=== PATIENT | female | born 2000 | race African-American/Black ===

== ENCOUNTER 2020-07-28 13:01 | Emergency (ER) | payer OTHER ==
[~2020-07-28] VITALS: Ht 160 cm; Wt 54.4 kg
[2020-07-28 14:16] VITALS: BP 120/80
--- NOTE | 2020-07-28 14:20 | NUR ---
ED Nurse Note: Patient brought in by ambulance due to possible overdose of cocaine. Pt c/o abd pain with N/V. AAO x4, ambulatory. Speaks in clear sentence wiht no respiratory distress.
[2020-07-28 14:37] LABS: BASOPHILS % (AUTO) 0.6 % (0.0-2.0); EOSINOPHILS % (AUTO) 0.8 % (0.0-3.0); HEMATOCRIT 45.5 % (37.0-47.0); HEMOGLOBIN 15.1 G/DL (12.0-16.0); LYMPHOCYTES % (AUTO) 27.9 % (20.0-45.0); MEAN CORPUSCULAR VOLUME 100 FL (80-99); MONOCYTES % (AUTO) 9.1 % (1.0-10.0); NEUTROPHILS % (AUTO) 61.6 % (45.0-75.0); PLATELET COUNT 212 K/UL (150-450); RED BLOOD COUNT 4.54 M/UL (4.20-5.40); RED CELL DISTRIBUTION WIDTH 12.1 % (11.6-14.8); WHITE BLOOD COUNT 10.7 K/UL (4.8-10.8)
--- NOTE | 2020-07-28 14:48 | Emergency Room Report ---
History of Present Illness General Chief Complaint: General Complaint Source: Patient Present Illness HPI 20-year-old female with no symptom past medical history brought in by paramedics due to overdose on cocaine and other unknown substances. Patient reports that she snorted cocaine in clear and "puffed some unknown drug." Also reports that drank alcohol. Patient reports that she has history of schizophrenia however is noncompliant with taking medication. Denies chest pain, shortness of breath, headache and dizziness. Talking in full sentences, compliant, and in no distress. Denies SI and HI Allergies: Coded Allergies: No Known Allergies (Unverified , 07/28/20) COVID-19 Screening Contact w/high risk pt: No Experienced COVID-19 symptoms?: No COVID-19 Testing performed UNARMED SECURITY GUARD: No Patient History Past Medical History: see triage record Past Surgical History: none Pertinent Family History: none Now: No Immunizations: UTD Reviewed Nursing Documentation: PMH: Agreed; PSxH: Agreed Nursing Documentation-PMH Past Medical History: No Stated History Review of Systems All Other Systems: negative except mentioned in HPI Physical Exam Vital Signs Date Time Temp Pulse Resp B/P (MAP) Pulse Ox O2 Delivery O2 Flow Rate FiO2 07/28/20 13:45 98.2 86 18 120/80 (93) 98 Room Air Sp02 EP Interpretation: reviewed, normal General Appearance: no apparent distress, alert, GCS 15, non-toxic Head: normocephalic, atraumatic Eyes: bilateral eye normal inspection, bilateral eye PERRL ENT: hearing grossly normal, normal pharynx, no angioedema, normal voice Neck: full range of motion, supple/symm/no masses Respiratory: chest non-tender, lungs clear, normal breath sounds, speaking full sentences Cardiovascular #1: regular rate, rhythm, no edema Cardiovascular #2: 2+ carotid (R), 2+ carotid (L), 2+ radial (R), 2+ radial (L), 2+ dorsalis pedis (R), 2+ dorsalis pedis (L) Gastrointestinal: normal bowel sounds, non tender, soft, non-distended, no guarding, no rebound Rectal: deferred Musculoskeletal: back normal Neurologic: alert, motor strength/tone normal, oriented x3, sensory intact, responsive, speech normal Psychiatric: judgement/insight normal, memory normal, mood/affect normal, no suicidal/homicidal ideation Skin: palpation normal Lymphatic: no adenopathy Medical Decision Making PA Attestation All my diagnosis and treatment plans were reviewed ad discussed with my supervising physician Dr. Calero Diagnostic Impression: Primary Impression: Left against medical advice ER Course 20-year-old female with no symptom past medical history brought in by paramedics due to overdose on cocaine and other unknown substances. Patient reports that she snorted cocaine in clear and "puffed some unknown drug." Also reports that drank alcohol. Patient reports that she has history of schizophrenia however is noncompliant with taking medication. Denies chest pain, shortness of breath, headache and dizziness. Talking in full sentences, compliant, and in no distress. Denies SI and HI Ddx considered but are not limited to:cocaine abuse, meth abuse, PCP abuse, Alcohol intoxication with altered level of consciousness, alcohol intoxication causing pancreatitis, alcohol abuse, multi drug use and alcohol intoxication Vital signs: are WNL, pt. is afebrile H&PE are most consistent with: left AMA ORDERS: CBC, CMP, UA, urine test, toxin, chest x-ray, blood serum alcohol ER intervention: NS bolus pt left AMA, had full judgement in making decision, said " she called the paramedics because she was scared after she used drugs and now she knows not to use drugs anymore." is interested in list of rehab places. Last Vital Signs Date Time Temp Pulse Resp B/P (MAP) Pulse Ox O2 Delivery O2 Flow Rate FiO2 07/28/20 14:16 98.2 88 18 120/80 98 Room Air Disposition: AGAINST MEDICAL ADVICE Condition: Stable Referrals: [facility]ERR[facility] (PCP) Arcadio Sarmiento Jul 28, 2020 14:48
--- NOTE | 2020-07-28 14:55 | NUR ---
ED Nurse Note: Collected urine then sent.
[2020-07-28 15:05] VITALS: BP 133/79
--- NOTE | 2020-07-28 15:05 | NUR ---
ED Nurse Note: Patient signed AMA form and Arcadio/ANGEL notified. Patient is AAO x4 and ambulates with steady gait. Pt is aware of potential complications and vergbalized understanding. List of rehab resources given to patient. No ID band/IV access.
[2020-07-28 15:15] LABS: ANION GAP 8 mmol/L (5-15); BLOOD UREA NITROGEN 4 mg/dL (7-18); CALCIUM 9.2 MG/DL (8.5-10.1); CARBON DIOXIDE 27 MMOL/L (21-32); CHLORIDE 105 MMOL/L (98-107); CREATININE 0.8 MG/DL (0.55-1.30); POTASSIUM 4.8 MMOL/L (3.5-5.1); SODIUM 140 MMOL/L (136-145)
--- NOTE | 2020-07-28 15:18 | Diagnostic Imaging Report ---
EXAM: XR Chest, 1 View CLINICAL HISTORY: Shortness of breath TECHNIQUE: Frontal view of the chest. COMPARISON: No relevant prior studies available. FINDINGS: Lungs: Unremarkable. The lungs appear clear. No focal consolidation. Pleural space: Unremarkable. The costophrenic angles are sharp. No visible pneumothorax. Heart: Unremarkable. No cardiomegaly. Mediastinum: Unremarkable. Bones/joints: Unremarkable. IMPRESSION: Unremarkable chest x-ray.
[2020-07-28 15:19] LABS: ALANINE AMINOTRANSFERASE 20 U/L (12-78); ALBUMIN 4.5 G/DL (3.4-5.0); ALBUMIN/GLOBULIN RATIO 1.2 (1.0-2.7); ALKALINE PHOSPHATASE 67 U/L (46-116); ASPARTATE AMINO TRANSFERASE 51 U/L (15-37); BILIRUBIN,TOTAL 0.5 MG/DL (0.2-1.0)
[2020-07-28 16:03] LABS: APPEARANCE,URINE VERY CLOUDY; BILIRUBIN, URINE NEGATIVE (NEGATIVE); COLOR,URINE YELLOW; GLUCOSE, URINE (UA) NEGATIVE (NEGATIVE); KETONES,URINE NEGATIVE (NEGATIVE); LEUKOCYTE ESTERASE ,URINE 3+ (NEGATIVE); NITRITE,URINE POSITIVE (NEGATIVE); PH,URINE 6.5 (4.5-8.0); PROTEIN,URINE 2+ (NEGATIVE); UROBILINOGEN,URINE NORMAL MG/DL (0.0-1.0)
== END 2020-07-28 15:05 | disposition left against medical advice (07) ==
LOC: EDBD 13:01 → EMR 14:34
DX: T40.5X1A Poisoning by cocaine, accidental (unintentional), initial encounter (principal); T50.901A Poisoning by unspecified drugs, medicaments and biological substances, accidental (unintentional), initial encounter; F20.9 Schizophrenia, unspecified; Y92.9 Unspecified place or not applicable; Z53.29 Procedure and treatment not carried out because of patient's decision for other reasons; Z72.89 Other problems related to lifestyle
CPT/HCPCS: 36415; 71045; 80053; 80307; 81003; 81025; 85025; 87086; 87181; G0480; Z7502; 99284

== ENCOUNTER 2020-09-09 17:00 | Emergency (ER) | payer OTHER ==
[~2020-09-09] VITALS: Ht 121.9 cm; Wt 54.4 kg
[2020-09-09 17:05] VITALS: BP 102/72
--- NOTE | 2020-09-09 17:05 | NUR ---
ED Nurse Note: Pt BIBA RA58 from home c/o panic attack. Pt admits taking meth, cocaine and smoking weed. Pt is calm and cooperative. Denies CP/ SOB. AAOx4, verbally responsive. ERPA at bedside.
--- NOTE | 2020-09-09 17:32 | Emergency Room Report ---
History of Present Illness General Chief Complaint: General Complaint Source: Patient Present Illness HPI 20-year-old female with reportedly no past medical history presents today stating that " Josh Sykes told her to come here because he is coming to pick her up. 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 She is requesting water. [place] which is why she is in this area. Severity mild, quality none, timing onset to arrival, no other modifying factors or associated signs or symptoms. PMH: [Denies] PSH: [Denies] Smoking: [Denies] Ethanol: [Denies] Drug: [Denies] Allergies: Coded Allergies: No Known Allergies (Unverified , 07/28/20) COVID-19 Screening Contact w/high risk pt: No Experienced COVID-19 symptoms?: No COVID-19 Testing performed SPINNER IRON: No Patient History Now: No Nursing Documentation-PMH Past Medical History: No Stated History Review of Systems Narrative Review of systems: CONST: No fevers or chills, No night sweats EYES: No eye pain, vision change, eye discharge HEAD/EARS/NOSE/THROAT: No earache, sore throat, or nasal discharge. PULMONARY: No SOB, no cough, no wheezing CARDIAC: No chest pain, No palpitations, no leg swelling GI: No abdominal pain, no vomiting, no diarrhea , no melena or BRBPR : No flank pain, no dysuria, no hematuria, no frequency. MUSCULOSKELETAL: No back pain, no neck pain, no leg pain SKIN: No rash, no itching, no bruising NEUROLOGICAL: No headache, no dizziness, no paresthesia , no focal weakness. 14 point Review of Systems is otherwise negative except per HPI Physical Exam Vital Signs Date Time Temp Pulse Resp B/P (MAP) Pulse Ox O2 Delivery O2 Flow Rate FiO2 09/09/20 16:58 97.5 100 18 102/72 (82) 98 Room Air Other Organ Systems Physical Exam: GENERAL: Awake, alert, nontoxic, in no acute distress EYES: EOMI, conjunctiva without pallor HEAD/EARS/NOSE/THROAT: NCAT, oral mucosa moist, external nose and ear normal in appearance, oropharynx clear, no swelling or exudates. NECK: supple, nontender, no spasm, no JVD, no cervical adenopathy RESPIRATORY: no stridor, effort normal, no retractions, no accessory muscle use, BS clear bilaterally, no wheezes, no rhonchi, no rales, no rub. CARDIOVASCULAR: tachycardia. normal S1 S2, no murmur, no peripheral edema ABDOMINAL /GI: soft, nondistended, nontender, BS normal, no masses, no guarding, no Mcburneys point tenderness, no rebound, no Murpheys sign : No CVA tenderness MUSCULOSKELETAL: All extremities are non-tender, no swelling, FROM, normal strength, normal sensation, cap refill <2 seconds in all extremities EXTREMITIES: no leg swelling, pulses: 2+ brisk and normal in all distal extremities SKIN: No rash, skin is warm and dry. No cyanosis, no pallor NEUROLOGICAL: awake, alert and appropriate, oriented x3, speech normal, motor and sensation grossly intact PSYCHIATRIC: Normal mood, normal affect Medical Decision Making PA Attestation [Carlitos] Is my supervising Physician whom patient management has been discussed with. ER Course Ddx considered but are not limited to drug abuse, hallucinations, anxiety. Vital signs: are WNL, pt. is afebrile H&PE are most consistent with drug abuse ED INTERVENTIONS AND MDM : Pt. presents to the ED c/o anxiety attack to the triage nurse however to me patient states that she has no symptoms of anxiety, ROS is negative, and that she is currently waiting for "Josh Sykes," the famous nagel, to pick her up. Patient denies any drug use to me however patient has evidence of positive methamphetamines and positive cocaine use on her urine drug screen. She was monitored while here in ER and appears in no acute distress, she is talking in full sentences and stating she would like to go home, she is not reporting any hallucinations, she denies any SI or HI. She is not talking about Josh Sykes picking her up anymore. Patient was noted to have evidence of possible urinary tract infection and given her white count of 14.8, recommend treating patient for UTI. She was given 1 dose of Rocephin while here in ER and sent home with a prescription for Keflex. Of note patient's elevated white blood cell count could also be due to the methamphetamine use. She has no fevers, CVA tenderness or vomiting, do not suspect pyelonephritis or septic stone at this time. Vital signs are currently stable, heart rate mildly elevate d at 100 but I suspect that is due to the methamphetamine use. Patient was advised to avoid doing drugs. She is otherwise in no acute distress and stable for discharge home. She does not appear to be a danger to herself or others at this time. I discussed this case with my supervising physician Dr. Urbina and she agreed with the plan as well. Laboratory Tests Test 09/09/20 17:48 09/09/20 18:55 White Blood Count 14.8 K/UL (4.8-10.8) H Red Blood Count 4.46 M/UL (4.20-5.40) Hemoglobin 14.8 G/DL (12.0-16.0) Hematocrit 41.2 % (37.0-47.0) Mean Corpuscular Volume 92 FL (80-99) Mean Corpuscular Hemoglobin 33.1 PG (27.0-31.0) H Mean Corpuscular Hemoglobin Concent 35.9 G/DL (32.0-36.0) Red Cell Distribution Width 12.4 % (11.6-14.8) Platelet Count 241 K/UL (150-450) Mean Platelet Volume 7.4 FL (6.5-10.1) Neutrophils (%) (Auto) 80.9 % (45.0-75.0) H Lymphocytes (%) (Auto) 11.0 % (20.0-45.0) L Monocytes (%) (Auto) 7.2 % (1.0-10.0) Eosinophils (%) (Auto) 0.3 % (0.0-3.0) Basophils (%) (Auto) 0.5 % (0.0-2.0) Sodium Level 136 MMOL/L (136-145) Potassium Level 4.7 MMOL/L (3.5-5.1) Chloride Level 102 MMOL/L (98-107) Carbon Dioxide Level 26 MMOL/L (21-32) Anion Gap 8 mmol/L (5-15) Blood Urea Nitrogen 8 mg/dL (7-18) Creatinine 1.0 MG/DL (0.55-1.30) Estimated Glomerular Filtration Rate > 60 mL/min (>60) Glucose Level 81 MG/DL (74-106) Calcium Level 9.1 MG/DL (8.5-10.1) Total Bilirubin 0.4 MG/DL (0.2-1.0) Aspartate Amino Transferase (AST) 21 U/L (15-37) Alanine Aminotransferase (ALT) 21 U/L (12-78) Alkaline Phosphatase 64 U/L (46-116) Total Protein 8.2 G/DL (6.4-8.2) Albumin 4.1 G/DL (3.4-5.0) Globulin 4.1 g/dL Albumin/Globulin Ratio 1.0 (1.0-2.7) Salicylates Level 1.7 ug/mL (2.8-20) L Acetaminophen Level < 2 MCG/ML (10-30) L Urine Color Pale yellow Urine Appearance Clear Urine pH 6 (4.5-8.0) Urine Specific Josephine 1.005 (1.005-1.035) Urine Protein Negative (NEGATIVE) Urine Glucose (UA) Negative (NEGATIVE) Urine Ketones Negative (NEGATIVE) Urine Blood 2+ (NEGATIVE) H Urine Nitrite Negative (NEGATIVE) Urine Bilirubin Negative (NEGATIVE) Urine Urobilinogen Normal MG/DL (0.0-1.0) Urine Leukocyte Esterase 2+ (NEGATIVE) H Urine RBC 5-10 /HPF (0 - 2) H Urine WBC 5-10 /HPF (0 - 2) H Urine Squamous Epithelial Cells Moderate /LPF (NONE/OCC) H Urine Bacteria Few /HPF (NONE) Urine HCG, Qualitative Negative (NEGATIVE) Urine Opiates Screen Negative (NEGATIVE) Urine Barbiturates Screen Negative (NEGATIVE) Phencyclidine (PCP) Screen Negative (NEGATIVE) Urine Amphetamines Screen Positive (NEGATIVE) H Urine Benzodiazepines Screen Negative (NEGATIVE) Urine Cocaine Screen Positive (NEGATIVE) H Urine Marijuana (THC) Screen Negative (NEGATIVE) Last Vital Signs Date Time Temp Pulse Resp B/P (MAP) Pulse Ox O2 Delivery O2 Flow Rate FiO2 09/09/20 16:58 97.5 100 18 102/72 (82) 98 Room Air Status: improved Disposition: HOME, SELF-CARE Condition: Stable Scripts Cephalexin* (KEFLEX*) 500 Mg Capsule 500 MG ORAL EVERY 6 HOURS for 7 Days, #28 CAP Prov: Marjan Jimenez PA-C 09/09/20 Referrals: Tangela Zayas. [facility] Patient Instructions: Urinary Tract Infection Additional Instructions: Take antibiotics as prescribed for urinary tract infection. Stop doing drugs. Follow up with a Primary Care Provider in 1-2 days, even if your symptoms have resolved. Return sooner to ED if new symptoms occur, or current symptoms become worse. - Please note that this Emergency Department Report was dictated using Keep Holdingsassistant research scientist technology software, occasionally this can lead to erroneous entry secondary to interpretation by the dictation equipment. Marjan Jimenez PA-C Sep 09, 2020 17:32
--- NOTE | 2020-09-09 17:48 | NUR ---
ED Nurse Note: IV line established. Blood sent to lab.
[2020-09-09 18:04] LABS: BASOPHILS % (AUTO) 0.5 % (0.0-2.0); EOSINOPHILS % (AUTO) 0.3 % (0.0-3.0); HEMATOCRIT 41.2 % (37.0-47.0); HEMOGLOBIN 14.8 G/DL (12.0-16.0); MEAN CORPUSCULAR VOLUME 92 FL (80-99); MONOCYTES % (AUTO) 7.2 % (1.0-10.0); NEUTROPHILS % (AUTO) 80.9 % (45.0-75.0); PLATELET COUNT 241 K/UL (150-450); RED BLOOD COUNT 4.46 M/UL (4.20-5.40); RED CELL DISTRIBUTION WIDTH 12.4 % (11.6-14.8); WHITE BLOOD COUNT 14.8 K/UL (4.8-10.8)
[2020-09-09 18:18] LABS: ANION GAP 8 mmol/L (5-15); BLOOD UREA NITROGEN 8 mg/dL (7-18); CALCIUM 9.1 MG/DL (8.5-10.1); CARBON DIOXIDE 26 MMOL/L (21-32); CHLORIDE 102 MMOL/L (98-107); POTASSIUM 4.7 MMOL/L (3.5-5.1); SODIUM 136 MMOL/L (136-145)
[2020-09-09 18:22] LABS: ALANINE AMINOTRANSFERASE 21 U/L (12-78); ALBUMIN 4.1 G/DL (3.4-5.0); ALKALINE PHOSPHATASE 64 U/L (46-116); ASPARTATE AMINO TRANSFERASE 21 U/L (15-37); BILIRUBIN,TOTAL 0.4 MG/DL (0.2-1.0)
--- NOTE | 2020-09-09 18:54 | NUR ---
ED Nurse Note: Urine sent.
--- NOTE | 2020-09-09 19:08 | NUR ---
HAND-OFF: Report given to Jayne PARRA.
[2020-09-09 19:30] LABS: APPEARANCE,URINE CLEAR; BILIRUBIN, URINE NEGATIVE (NEGATIVE); COLOR,URINE PALE YELLOW; GLUCOSE, URINE (UA) NEGATIVE (NEGATIVE); KETONES,URINE NEGATIVE (NEGATIVE); LEUKOCYTE ESTERASE ,URINE 2+ (NEGATIVE); NITRITE,URINE NEGATIVE (NEGATIVE); PH,URINE 6 (4.5-8.0); PROTEIN,URINE NEGATIVE (NEGATIVE); UROBILINOGEN,URINE NORMAL MG/DL (0.0-1.0)
--- NOTE | 2020-09-09 19:30 | NUR ---
ED Nurse Note: received patient from wayne hernandez. patient resting in bed with no acute distress. iv access flushed and patent. denies pain or any complaints at this time. vitals stable. will continue to monitor.
[2020-09-09] MEDS ORDERED: cefTRIAXone 1 GM in NS 55 ML IVPB ONE (19:45)
[2020-09-09] MEDS ORDERED: CEPHALEXIN500 MG ORAL (20:12)
[2020-09-09 21:00] VITALS: BP 112/73
--- NOTE | 2020-09-09 21:00 | NUR ---
ER DISCHARGE NOTE: Patient is cleared to be discharged per ERMD, pt is aox4, on room air, with stable vital signs. pt was given dc and prescription instructions, pt was able to verbalize understanding, pt id band and iv site removed without complications. pt is able to ambulate with steady gait. pt took all belongings.
== END 2020-09-09 21:00 | disposition home or self-care (01) ==
LOC: EDBD 17:00 → EMR 17:35
DX: F41.9 Anxiety disorder, unspecified (principal); N39.0 Urinary tract infection, site not specified; F15.10 Other stimulant abuse, uncomplicated; F14.10 Cocaine abuse, uncomplicated
CPT/HCPCS: 36415; 80053; 80307; 81003; 81025; 85025; 96365; G0480; G0481; J0696; Z7502; 99284